=== PATIENT | male | born 1985 | race African-American/Black ===

== ENCOUNTER 2017-09-14 17:20 | Emergency (ER) | payer MEDICAID ==
[~2017-09-14] VITALS: Ht 177.8 cm; Wt 104.0 kg
[2017-09-14 17:40] VITALS: BP 146/96
== END 2017-09-14 18:25 | disposition home or self-care (01) ==
LOC: ER 17:20
DX: T16.1XXA Foreign body in right ear, initial encounter (principal); W45.8XXA Other foreign body or object entering through skin, initial encounter; Y93.89 Activity, other specified; Y92.89 Other specified places as the place of occurrence of the external cause; Y99.8 Other external cause status
CPT/HCPCS: 69200; 99284